=== PATIENT | female | born 1980 | race American Indian/Alaskan Native ===

== ENCOUNTER 2018-12-19 20:42 | Emergency (ER) | payer SELFPAY ==
[2018-12-19 20:56] VITALS: BP 137/80; PULSE 101; RESP 16; TEMP 98.4; O2SAT 97
--- NOTE | 2018-12-19 21:06 | C.PDOC ---
History Of Present Illness 38 yr F, w/ hx of epilepsy on phenobarbital p/w abdominal pain. Pt notes abdominal pain to her suprapubic region today. She also notes spotting today and LMP in august. She otherwise denies any rash or ulcerations or other abnl vaginal d/c. She notes that she was concerned she could be . She notes mild nausea but no vomiting spells. PT notes that she has been non-compliant with her phenobarb over the past two weeks because she could not affored her new prescription. She denies any recent seizure activity. No fall or trauma. NO headache, neck stiffnes or chest pain. NO constipation or diarrhea. No back pain. No extremity pain. PMD: Dr. Bowman. OBGYN: none Time Seen by Provider: 12/19/18 21:06 Chief Complaint (Nursing): Abdominal Pain Past Medical History Vital Signs: Last Vital Signs Temp 98.4 F 12/19/18 20:51 Pulse 101 H 12/19/18 20:51 Resp 16 12/19/18 20:51 BP 137/80 12/19/18 20:51 Pulse Ox 97 12/19/18 20:51 - Medical History PMH: Anemia, Seizures (epilepsy) Surgical History: Cholecystectomy Family History: States: Unknown Family Hx - Social History Hx Alcohol Use: No Hx Substance Use: No Review Of Systems Constitutional: Negative for: Fever, Chills, Sweats, Weakness, Malaise, Weight loss Eyes: Negative for: Pain, Vision Change, Conjunctivae Inflammation, Eyelid Inflammation, Redness ENT: Negative for: Ear Pain, Ear Discharge, Nose Pain, Nose Congestion, Mouth Pain Cardiovascular: Negative for: Chest Pain, Palpitations, Orthopnea Respiratory: Negative for: Cough, Shortness of Breath, Hemoptysis, SOB with Excertion, Pleuritic Pain, Sputum Gastrointestinal: Positive for: Nausea, Abdominal Pain. Negative for: Vomiting, Constipation, Melena, Hematochezia, Hematemesis Genitourinary: Positive for: Vaginal Bleeding (spotting). Negative for: Dysuria, Frequency, Incontinence, Hematuria, Vaginal Discharge Musculoskeletal: Negative for: Neck Pain, Shoulder Pain, Arm Pain, Back Pain, Hand Pain, Leg Pain, Foot Pain Skin: Negative for: Rash, Lesions Neurological: Negative for: Weakness, Numbness, Change in Speech, Altered Mental Status, Headache Psych: Negative for: Anxiety, Depression, Psychosis, Suicidal ideation Physical Exam - Physical Exam Appears: Well, Non-toxic, No Acute Distress Skin: Normal Color, Warm, Dry Head: Atraumatic, Normacephalic, No Tenderness, No Swelling, No Abrasion, No Laceration Eye(s): bilateral: Normal Inspection, PERRL, EOMI Ear(s): Bilateral: Normal Nose: Normal Oral Mucosa: Moist Tongue: Normal Appearing Lips: Normal Appearing Teeth: Normal Dentition Gingiva: Normal Appearing Throat: Normal, No Erythema, No Exudate, No Drooling Neck: Normal Lymphatic: Normal Exam, No Adenopathy Chest: Symmetrical Cardiovascular: Rhythm Regular Respiratory: Normal Breath Sounds Gastrointestinal/Abdominal: Normal Exam, Soft, No Tenderness, No Mass, No Distention, No Guarding, No Rebound, No Hernia Back: Normal Inspection, No CVA Tenderness, No Vertebral Tenderness Extremity: Normal ROM, No Tenderness, No Pedal Edema Extremity: Bilateral: Atraumatic Neurological/Psych: Oriented x3, Normal Speech, Normal Cognition, Normal Motor Gait: Steady ED Course And Treatment - Laboratory Results Result Diagrams: 12/19/18 21:36 12/19/18 21:36 O2 Sat by Pulse Oximetry: 97 Medical Decision Making Medical Decision Makin yr old F p/w abdominal pain, non-ttp on exam and +preg. NO fall or trauma. No dark or bloody stool. No urinary complaints. No CVAT. Normal neuro exam. pending imaging and labs 1031 +UTI on labs. blood in urine: likely 2/2 spotting. 1133 TVUS resulted, largely unremarkable Pending Type and screen and repeat chemistry. PT eloped, ran out of the building with despite my inclinations to stay for elevated K, UTI and +bleeding during . Disposition - Disposition Disposition: ELOPEMENT - ER ONLY Disposition Time: 23:34 Condition: UNKNOWN Forms: [facility] (German) - Clinical Impression Clinical Impression: UTI (urinary tract infection), Abdominal pain in
[2018-12-19] MEDS ORDERED: Sodium Chloride 0.9% 1,000 ML IV ONE (21:11)
[2018-12-19 21:30] LABS: SQUAMOUS EPITHIAL 13 /hpf (0-5); URINE BILIRUBIN NEGATIVE (NEGATIVE); URINE BLOOD NEGATIVE (NEGATIVE); URINE CLARITY Hazy (Clear); URINE COLOR Yellow (YELLOW); URINE GLUCOSE (UA) NORMAL (Normal); URINE LEUKOCYTE ESTERASE 2+ Leu/uL (Negative); URINE PROTEIN 1+ mg/dL (NEGATIVE)
[2018-12-19 21:47] LABS: BASO # 0.1 K/uL (0.0-0.2); BASO % 0.5 % (0.0-2.0); EOS % 0.2 % (0.0-4.0); HEMOGLOBIN 12.1 g/dL (11.0-16.0); LYMPH # 2.9 K/uL (1.0-4.3); LYMPH % 24.2 % (20.0-40.0); MEAN CELL VOLUME 78.7 fL (81.0-99.0); MEAN CORPUSCULAR HGB CONC 31.7 g/dL (33.0-37.0); MEAN PLATELET VOLUME 8.6 fL (7.2-11.7); MONO # 0.8 K/uL (0.0-0.8); MONO % 6.3 % (0.0-10.0); NEUT # 8.2 K/uL (1.8-7.0); NEUT % 68.8 % (50.0-75.0); RBC 4.86 Mil/uL (3.80-5.20); RED CELL DISTRIBUTION WIDTH 15.2 % (11.5-14.5)
[2018-12-19 22:14] LABS: ALB/GLOB RATIO 1.4 (1.0-2.1); ALBUMIN 5.1 g/dL (3.5-5.0); ALT/SGPT < 6 U/L (9-52); AST/SGOT 30 U/L (14-36); BLOOD UREA NITROGEN 13 mg/dL (7-17); CALCIUM 9.1 mg/dl (8.6-10.4); GFR NON-AFRICAN AMERICAN > 60; LIPASE 23 U/L (23-300)
--- NOTE | 2018-12-20 12:39 | US ---
Date of service: 12/19/2018 PROCEDURE: OB Pelvic Ultrasound HISTORY: +preg LMP: Beginning of August COMPARISON: None available. FINDINGS: UTERUS: Gestational sac: Single intrauterine gestation. Heart rate: Not visualized . age (Ultrasound estimated): 6 weeks 0 day +/-0 weeks 3 days. Reyna-gestational hemorrhage: None. Date of delivery (Ultrasound estimated) : 08/14/2019 Uterus measures 9.3 x 6.1 cm. Normal in size and appearance. CERVIX: Measures 3.1 cm. Long and closed. No cervical abnormality seen. RIGHT OVARY: Measures 2.7 x 1.9 x 2.5 cm. No mass lesion. Normal flow. LEFT OVARY: Measures 3.2 x 2.5 x 2.7 cm. No solid mass. Normal flow. FREE FLUID: None. OTHER FINDINGS: None. IMPRESSION: Six week intrauterine . The pole and the yolk sac are visualized. No heart activity appreciated in this exam. Clinical correlation and close follow-up reassessment is recommended.
== END 2018-12-19 22:50 | disposition left against medical advice (07) ==
LOC: C.ER 20:42
DX: O23.41 Unspecified infection of urinary tract in pregnancy, first trimester (principal); O26.891 Other specified pregnancy related conditions, first trimester; R10.30 Lower abdominal pain, unspecified; Z3A.01 Less than 8 weeks gestation of pregnancy
CPT/HCPCS: 36415; 76805; 76817; 80053; 81001; 81025; 83690; 84702; 85025; 96374; 99284; J2765; J7030